=== PATIENT | male | born 1925 | race Caucasian/White ===

== ENCOUNTER → 2016-10-25 | Outpatient (CLI) | payer MEDICARE, BC ==
[2015-11-15 14:10] VITALS: BP 124/61
--- NOTE | 2016-10-25 16:58 | RAD ---
Renal ultrasound, 10/25/2016: History: Renal mass The right kidney measures 10.3 cm in length while the left kidney measures 10.0. At least 4 left renal cysts are present. The largest of these measures 1.5 cm. The kidneys show no evidence of obstruction. A lobulated mass is again identified arising from lateral aspect of the right kidney. It has been identified on multiple previous studies and has a solid appearance. It currently measures 4.1 x 4.0 x 3.0 cm. Allowing for technical differences these measurements are similar to the exam of 04/27/2016. Correlation with multiple previous study suggests that this is a slowly growing solid mass. Limited views of urinary bladder are unremarkable. IMPRESSION: 1. Left renal cysts. 2. The solid right renal mass has shown no definite change in size since 04/19/2016, however, it has slowly increased in size since prior studies. 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
== END | disposition home or self-care (01) ==
LOC: US 14:47
PROVIDERS: ATTEND Urology
DX: N28.89 Other specified disorders of kidney and ureter (principal)
CPT/HCPCS: 76770